=== PATIENT | male | born 1970 | race Caucasian/White ===

== ENCOUNTER → 2018-04-05 | Outpatient (REF) | payer BC ==
[2018-04-05 20:58] LABS: CHLAMYDIA DNA AMPLIFICATION NEGATIVE (NEGATIVE); GC DNA AMPLIFICATION NEGATIVE (NEGATIVE)
== END ==
LOC: M SFHCLERA 13:14
DX: R30.0 Dysuria (principal); R53.83 Other fatigue
CPT/HCPCS: 87086

== ENCOUNTER → 2021-02-06 | Outpatient (CLI) | payer OTHER ==
--- NOTE | 2021-02-07 07:25 | REP ---
INDICATION: SPRAIN OFLT ACROMIOCLAVICULAR JOINT. COMPARISON: None. TECHNIQUE: Axial noncontrast images through the left shoulder with coronal and sagittal reformations. FINDINGS: The visualized osseous structures are intact, normal and age-appropriate. There is no evidence for acute fracture or dislocation/subluxation. Specifically, the acromioclavicular joint is normal in appearance and the surrounding soft tissue structures are unremarkable. The glenohumeral joint is also normal in appearance. No obvious joint effusion is identified. IMPRESSION: Normal noncontrast CT of the left shoulder. Specifically, normal appearance to the acromioclavicular joint, associated osseous structures and surrounding soft tissues. <Electronically signed by Issac Bell > 02/07/21 [id number]
== END ==
LOC: M RAD 15:16
PROVIDERS: ATTEND Orthopaedic Surgery
DX: S43.52XD Sprain of left acromioclavicular joint, subsequent encounter (principal); W18.30XD Fall on same level, unspecified, subsequent encounter; Y92.009 Unspecified place in unspecified non-institutional (private) residence as the place of occurrence of the external cause

== ENCOUNTER → 2023-11-30 | Outpatient (CLI) | payer BC ==
[2023-11-30 14:10] LABS: C REACTIVE PROTEIN QUANTITATIV < 0.40 MG/DL (<1.0)
[2023-11-30 14:13] LABS: FREE T4 1.06 NG/DL (0.89-1.76); THYROID STIMULATING HORMONE 0.986 uIU/ML (0.55-4.78)
[2023-12-01 14:22] LABS: IgG P18 AB NON-REACTIVE; IgG P23 AB NON-REACTIVE; IgG P28 AB NON-REACTIVE; IgG P30 AB NON-REACTIVE; IgG P39 AB NON-REACTIVE; IgG P41 AB REACTIVE; IgG P45 AB NON-REACTIVE; IgG P58 AB NON-REACTIVE; IgG P66 AB NON-REACTIVE; IgG P93 AB REACTIVE; IgM P23 AB REACTIVE; IgM P39 AB NON-REACTIVE; IgM P41 AB REACTIVE; LYME IgG WB INTERPRETATION NEGATIVE (NEGATIVE); LYME IgM WB INTERPRETATION POSITIVE (NEGATIVE)
== END ==
LOC: M PLALAB 10:35
PROVIDERS: ATTEND Internal Medicine Infectious Disease
DX: A69.20 Lyme disease, unspecified (principal)